=== PATIENT | female | born 1980 ===

== ENCOUNTER 2018-05-18 20:30 | Outpatient (CLI) | payer BC | END 2018-05-18 20:31 | disposition home or self-care (01) | LOC: SLEEPLAB 20:30 | PROVIDERS: ATTEND Family Medicine | DX: G47.33 Obstructive sleep apnea (adult) (pediatric) (principal); Z68.21 Body mass index [BMI] 21.0-21.9, adult; Z72.821 Inadequate sleep hygiene | CPT/HCPCS: 95806 ==